=== PATIENT | female | born 1955 | race Caucasian/White ===

== ENCOUNTER 2018-08-03 16:17 | Inpatient (IN) ==
[2018-08-03] MEDS ORDERED: ONDANSETRON 4 MG/2 ML VIAL IV STA (16:36)
[2018-08-03] MEDS ORDERED: SODIUM CHLORIDE 0.9% 500 ML IV STA (16:36)
[2018-08-03] MEDS ORDERED: PANTOPRAZOLE 40 MG VIAL IV STA (16:36)
[2018-08-03 17:15] LABS: Basophils # 0.1 10*3/uL (0.0-0.2); Basophils % 0.5 % (0.0-0.8); Eosinophils # 0.1 10*3/uL (0.0-0.87); Eosinophils % 0.6 % (0.00-10.9); Hematocrit 41.2 VOL% (35.7-47.0); Hemoglobin 12.7 GM/DL (12.0-16.0); Immature Granulocytes % 0.4 %; Immature Granulocytes Absolute 0.04 #; Lymphocytes # 1.9 10*3/uL (1.4-4.0); Lymphocytes % 18.9 % (21.3-54.2); Mean Corpuscular HGB Conc 30.8 GM/DL (32-36); Mean Corpuscular Hemoglobin 26 PG (27-34); Mean Corpuscular Volume 84.4 FL (87-102); Mean Platelet Volume 9.6 FL (9.6-12.0); Monocytes # 0.9 10*3/uL (0.11-0.8); Monocytes % 8.9 % (1.7-12.7); Neutrophils # 7.1 10*3/uL (1.4-7.4); Neutrophils % 70.7 % (38.7-73.9); Platelet Count 297 T/CUMM (130-400); Red Blood Count 4.88 MC/CUMM (3.8-5.5); Red Cell Distribution Width 14.8 % (9.3-17.3); White Blood Count 10.1 T/CUMM (4-12)
[2018-08-03 17:25] LABS: Albumin 3.9 G/DL (3.4-5.0); Bilirubin,Total 0.4 MG/DL (0.2-1.0); Osmolality,Calculated 285.3 MOS/KG (273-304); Potassium 3.9 MMOL/L (3.5-5.1); Total Protein 7.9 G/DL (6.4-8.3)
[2018-08-03 17:46] LABS: Apearance,Urine CLOUDY (Clear); Bilirubin,Urine Negative (Negative); Blood, Urine Small mg/dL (Negative); Glucose,Urine (UA) Negative (Negative); Hyaline Casts,Urine 11 /LPF (0-3); Ketones,Urine 5 mg/dL (Negative); Mucus,Urine Occasional /LPF (Occasional); Nitrite,Urine Positive (Negative); Protein,Urine 30 MG/DL; RBC,Urine 8 /HPF (0-4); Squamous Epithelial Cell,Urine Occasional /HPF (0-10); Urine Color Amber (Yellow); Urine Specific Gravity 1.021 (1.001-1.035); WBC,Urine 53 /HPF (0-6)
[2018-08-03 17:53] LABS: INR 0.9
[2018-08-03] MEDS ORDERED: cefTRIAXone 1,000 MG in SODIUM CHLORIDE 0.9% 100 ML IV STA (18:10)
[2018-08-03] MEDS ORDERED: ACETAMINOPHEN 325 MG TABLET PO PRN (19:25)
[2018-08-03] MEDS ORDERED: DEXTROSE 5% NACL 0.9% 1,000 ML IV SCH (19:30)
[2018-08-03] MEDS ORDERED: ONDANSETRON 4 MG/2 ML VIAL IV PRN (20:00)
[2018-08-03 20:22] LABS: Hematocrit 30.1 VOL% (35.7-47.0)
[2018-08-03 20:41] LABS: Hemoglobin 9.1 GM/DL (12.0-16.0)
[2018-08-03] MEDS ORDERED: PANTOPRAZOLE 40 MG VIAL IV SCH (21:00)
[2018-08-03] MEDS: OLANZapine 5 MG TABLET PO SCH (21:29)
[2018-08-03] MEDS: SODIUM CHLORIDE 0.9% 1,000 ML IV SCH (21:30)
[2018-08-03] MEDS: ZALEPLON 5 MG CAPSULE PO PRN (21:30)
[2018-08-04 01:44] LABS: Basophils % 0.4 % (0.0-0.8); Eosinophils # 0.1 10*3/uL (0.0-0.87); Hemoglobin 11.2 GM/DL (12.0-16.0); Immature Granulocytes % 0.1 %; Immature Granulocytes Absolute 0.01 #; Lymphocytes # 2.6 10*3/uL (1.4-4.0); Lymphocytes % 26.5 % (21.3-54.2); Mean Corpuscular HGB Conc 31.1 GM/DL (32-36); Mean Corpuscular Hemoglobin 26 PG (27-34); Mean Corpuscular Volume 84.3 FL (87-102); Monocytes # 1.2 10*3/uL (0.11-0.8); Monocytes % 12.5 % (1.7-12.7); Neutrophils # 5.9 10*3/uL (1.4-7.4); Neutrophils % 59.5 % (38.7-73.9); Platelet Count 271 T/CUMM (130-400); Red Blood Count 4.27 MC/CUMM (3.8-5.5); Red Cell Distribution Width 14.9 % (9.3-17.3); White Blood Count 9.8 T/CUMM (4-12)
[2018-08-04 02:32] LABS: Risk Ratio 2.58; Thyroid Stimulating Hormone 2.89 uIU/ml (0.358-3.74); VLDL CHOLESTEROL 44.6 MG/DL
[2018-08-04] MEDS: SODIUM CHLORIDE 0.9% 1,000 ML IV SCH ×3 (05:29→21:41)
[2018-08-04 08:21] LABS: Hematocrit 38.6 VOL% (35.7-47.0); Hemoglobin 11.8 GM/DL (12.0-16.0)
[2018-08-04] MEDS ORDERED: PANTOPRAZOLE 40 MG VIAL IV SCH (09:00)
[2018-08-04] MEDS: amLODIPine 10 MG TABLET PO SCH (09:30)
[2018-08-04] MEDS: BISACODYL 5 MG TABLET PO SCH ×3 (09:31→22:47)
[2018-08-04] MEDS: ACETAMINOPHEN 325 MG TABLET PO PRN ×2 (09:32→17:50)
[2018-08-04 13:55] LABS: Hematocrit 36.4 VOL% (35.7-47.0); Hemoglobin 11.1 GM/DL (12.0-16.0)
[2018-08-04] MEDS ORDERED: POLYETHYLENE GLYCOL POWDER 255 GM BOTTLE PO ONE (18:00)
[2018-08-04] MEDS: OLANZapine 5 MG TABLET PO SCH (20:32)
[2018-08-04] MEDS: ATORVASTATIN 20 MG TABLET PO SCH (20:32)
[2018-08-04] MEDS ORDERED: MAGNESIUM CITRATE 300 ML BOTTLE PO ONE (21:00)
[2018-08-04] MEDS ORDERED: HydrOXYzine PAMOATE 50 MG CAPSULE PO SCH (21:00)
[2018-08-05] MEDS: ZALEPLON 5 MG CAPSULE PO PRN (00:12)
[2018-08-05] MEDS ORDERED: PROPOFOL 200 MG/20 ML VIAL IV ONE (09:00)
[2018-08-05] MEDS ORDERED: LIDOCAINE 2% 5 ML VIAL ONE (09:00)
[2018-08-05 09:10] VITALS: BP 118/91
[2018-08-05] MEDS: SODIUM CHLORIDE 0.9% 1,000 ML IV SCH ×2 (10:13→13:01)
[2018-08-05] MEDS: amLODIPine 10 MG TABLET PO SCH (10:15)
[2018-08-05] MEDS: ATORVASTATIN 20 MG TABLET PO SCH (10:15)
[2018-08-05] MEDS ORDERED: FOSFOMYCIN 3 GM PACK PO ONE (12:00)
[2018-08-05] MEDS ORDERED: ACETAMINOPHEN 500 MG TABLET PO SCH (12:00)
[2018-08-05] MEDS: POLYETHYLENE GLYCOL POWDER 17 GM PACK PO SCH ×2 (12:40→13:36)
== END 2018-08-05 13:53 | disposition home or self-care (01) | DRG 254 ==
LOC: EDUNIT# → EDBD → N.ED 16:17 → N.EDINP 19:25 → N.5E 20:16
PROVIDERS: ADMIT Hospitalist; ATTEND Hospitalist
PROC: COLONBL (2018-08-05 07:35)

== ENCOUNTER 2021-04-14 18:10 | Inpatient (IN) ==
[2021-04-14] MEDS ORDERED: SODIUM CHLORIDE 0.9% 1,000 ML IV STA (19:29)
[2021-04-14 20:34] LABS: Basophils # 0.1 10*3/uL (0.0-0.2); Basophils % 0.3 % (0.0-0.8); Hematocrit 42.3 VOL% (35.7-47.0); Hemoglobin 13.4 GM/DL (12.0-16.0); Immature Granulocytes % 0.4 %; Immature Granulocytes Absolute 0.07 #; Lymphocytes # 2.2 10*3/uL (1.4-4.0); Lymphocytes % 12.3 % (21.3-54.2); Mean Corpuscular HGB Conc 31.7 GM/DL (32-36); Mean Corpuscular Volume 84.1 FL (87-102); Mean Platelet Volume 10.5 FL (9.6-12.0); Monocytes % 9.5 % (1.7-12.7); Neutrophils % 77.5 % (38.7-73.9); Platelet Count 291 T/CUMM (130-400); Red Blood Count 5.03 MC/CUMM (3.8-5.5); White Blood Count 17.7 T/CUMM (4-12)
[2021-04-14 20:40] LABS: Alanine Aminotransferase 436 U/L (13-56); Albumin 3.2 G/DL (3.4-5.0); Alkaline Phosphatase 116 U/L (45-117); Aspartate Amino Transferase 1272 U/L (0-37); Blood Urea Nitrogen 58 MG/DL (7-18); Calcium 9.2 MG/DL (8.5-10.1); Carbon Dioxide 16 MMOL/L (21-32); Estimated Glom Filtration Rate 10 ML/MIN; Glucose 117 MG/DL (74-106); Osmolality,Calculated 280.5 MOS/KG (273-304); Potassium 5.2 MMOL/L (3.5-5.1); Sodium 132 MMOL/L (136-145); Total Protein 7.7 G/DL (6.4-8.2)
[2021-04-14] MEDS ORDERED: ENOXAPARIN 30 MG/0.3 ML SYRINGE SUBCUT STA (20:59)
[2021-04-14] MEDS ORDERED: ENOXAPARIN 100 MG/ML SYRINGE SUBCUT STA (21:17)
[2021-04-14 21:27] LABS: Band Neutrophils 1 % (0-10); Eosinophils 1 % (0-10); Lymphocytes 14 % (20-55); Metamyelocytes 1 %; Platelet Estimate Adequate; Segmented Neutrophils 75 % (50-85); Total Cells Counted 100
[2021-04-14 21:53] LABS: Bacteria,Urine Many /HPF (Few); Blood, Urine Moderate mg/dL (Negative); Glucose,Urine (UA) Negative (Negative); Ketones,Urine Negative (Negative); Mucus,Urine Many /LPF (Occasional); Nitrite,Urine Negative (Negative); Protein,Urine 100 MG/DL; RBC,Urine 57 /HPF (0-4); Squamous Epithelial Cell,Urine Occasional /HPF (0-10); Urine Appearance CLOUDY (Clear); Urine Color Amber (Yellow); Urine Specific Gravity 1.012 (1.001-1.035)
[2021-04-14 21:54] LABS: Bilirubin,Urine Small mg/dL (Negative)
[2021-04-14 21:58] LABS: Barbiturates Screen,Urine Negative (Negative); Benzodiazepines Screen,Urine Negative (Negative); Cannabinoid Screen,Urine Negative (Negative); Opiate Screen,Urine Negative (Negative); Phencyclidine Screen,Urine Negative (Negative)
[2021-04-14] MEDS ORDERED: PIPERACILLIN/TAZOBACTAM 3,375 MG in SODIUM CHLORIDE 0.9% 100 ML IV STA (22:07)
[2021-04-14] MEDS ORDERED: DEXTROSE 50% 25 GM/50 ML SYRINGE IV PRN (22:27)
[2021-04-14] MEDS ORDERED: SIMETHICONE CHEW 125 MG TABLET PO PRN (22:27)
[2021-04-14] MEDS ORDERED: ACETAMINOPHEN 325 MG TABLET PO PRN (22:27)
[2021-04-14] MEDS ORDERED: GLUCAGON 1 MG VIAL IM PRN (22:27)
[2021-04-15 01:04] LABS: INR 1.1; PT Patient Result 12.4 SECS (10.5-12.0); Partial Thromboplastin Time 41.4 SECS (23.8-32.1)
[2021-04-15] MEDS ORDERED: SODIUM CHLORIDE 0.9% 1,000 ML IV SCH (01:30)
[2021-04-15 03:31] LABS: Basophils % 0.2 % (0.0-0.8); Hematocrit 40.5 VOL% (35.7-47.0); Hemoglobin 12.8 GM/DL (12.0-16.0); Immature Granulocytes % 0.4 %; Immature Granulocytes Absolute 0.07 #; Lymphocytes # 1.7 10*3/uL (1.4-4.0); Lymphocytes % 9.5 % (21.3-54.2); Mean Corpuscular HGB Conc 31.6 GM/DL (32-36); Mean Corpuscular Volume 84.2 FL (87-102); Monocytes % 10.9 % (1.7-12.7); Platelet Count 269 T/CUMM (130-400); Red Blood Count 4.81 MC/CUMM (3.8-5.5); White Blood Count 17.8 T/CUMM (4-12)
[2021-04-15 03:51] LABS: Band Neutrophils 3 % (0-10); Lymphocytes 10 % (20-55); Platelet Estimate Adequate; Segmented Neutrophils 78 % (50-85); Total Cells Counted 100
[2021-04-15 03:52] LABS: Albumin 2.9 G/DL (3.4-5.0); Bilirubin,Direct 0.7 MG/DL (0.0-0.20); Bilirubin,Indirect 1.5 MG/DL (0.0-1.0); Bilirubin,Total 2.2 MG/DL (0.20-1.00); Calcium 8.3 MG/DL (8.5-10.1); Osmolality,Calculated 290.1 MOS/KG (273-304); Potassium 5.1 MMOL/L (3.5-5.1); Risk Ratio 2.17; Thyroid Stimulating Hormone 3.07 uIU/ml (0.358-3.74); Total Protein 7.4 G/DL (6.4-8.2); VLDL Cholesterol 33.2 MG/DL
[2021-04-15 05:59] LABS: ABG Base Excess -9.8 MMOL/L (-2.5-2.5); ABG HCO3 14.4 MMOL/L (20-26); ABG Oxygen Saturation 95.6 % (95-100); ABG PCO2 27.3 MM HG (35-48); ABG PO2 81.1 MM HG (80-95); ABG TCO2 15.2 MMOL/L (23-27)
[2021-04-15] MEDS ORDERED: SODIUM BICARB INJ 50 MEQ in SODIUM CHLORIDE 0.45% 1,000 ML IV SCH (06:00)
[2021-04-15] MEDS: SODIUM CHLORIDE 0.9% 1,000 ML IV SCH ×2 (06:14→14:28)
[2021-04-15] MEDS: MEROPENEM 500 MG in SODIUM CHLORIDE 0.9% 100 ML IV SCH ×2 (06:27→16:53)
[2021-04-15 07:53] LABS: Hepatitis B Core IgM Quant 0.28 Index; Hepatitis B Surface Ag Quant < 0.10 Index; Hepatitis B Surface Ag Result Non-Reactive (NonReactive); Hepatitis C Virus Ab Quant 10.26 Index
[2021-04-15] MEDS: SODIUM BICARB INJ 150 MEQ in STERILE WATER INJ 1,000 ML IV SCH ×2 (09:13→22:39)
[2021-04-15] MEDS: DOCUSATE SODIUM 100 MG CAPSULE PO SCH ×2 (09:15→22:38)
[2021-04-15] MEDS: PANTOPRAZOLE 40 MG TABLET PO SCH (09:15)
[2021-04-15] MEDS ORDERED: INFLUENZA VIRUS VACCINE 0.5 ML SYRINGE IM ONE (16:08)
[2021-04-15 22:17] LABS: CKMB % 0.3 %
[2021-04-15 22:18] LABS: High Sensitive Troponin I* 368.3 ng/L (0-54)
[2021-04-15] MEDS: ZALEPLON 5 MG CAPSULE PO PRN (22:38)
[2021-04-15] MEDS: HEPARIN 5,000 UNIT/1 ML VIAL SUBCUT SCH (22:39)
[2021-04-15] MEDS: POLYETHYLENE GLYCOL POWDER 17 GM PACK PO SCH (22:46)
[2021-04-16] MEDS: MEROPENEM 500 MG in SODIUM CHLORIDE 0.9% 100 ML IV SCH (05:17)
[2021-04-16 05:50] LABS: Basophils % 0.2 % (0.0-0.8); Eosinophils % 0.1 % (0.00-10.9); Hematocrit 34.4 VOL% (35.7-47.0); Hemoglobin 11.2 GM/DL (12.0-16.0); Immature Granulocytes % 0.1 %; Immature Granulocytes Absolute 0.02 #; Lymphocytes # 0.9 10*3/uL (1.4-4.0); Lymphocytes % 6.5 % (21.3-54.2); Mean Corpuscular HGB Conc 32.6 GM/DL (32-36); Mean Corpuscular Volume 81.9 FL (87-102); Mean Platelet Volume 10.2 FL (9.6-12.0); Monocytes % 8.5 % (1.7-12.7); Neutrophils % 84.6 % (38.7-73.9); Platelet Count 259 T/CUMM (130-400); Red Cell Distribution Width 15.9 % (9.3-17.3); White Blood Count 13.6 T/CUMM (4-12)
[2021-04-16 06:15] LABS: Hypochromasia 1+; Lymphocytes 4 % (20-55); Microcytosis 1+; Platelet Estimate Adequate; Segmented Neutrophils 90 % (50-85); Total Cells Counted 100
[2021-04-16 06:26] LABS: Albumin 2.3 G/DL (3.4-5.0); Bilirubin,Total 2.1 MG/DL (0.20-1.00); Calcium 8.5 MG/DL (8.5-10.1); Osmolality,Calculated 287.9 MOS/KG (273-304); Potassium 5.3 MMOL/L (3.5-5.1); Total Protein 6.8 G/DL (6.4-8.2)
[2021-04-16 06:26] LABS: Albumin 2.3 G/DL (3.4-5.0); Bilirubin,Direct 0.53 MG/DL (0.0-0.20); Bilirubin,Indirect 1.1 MG/DL (0.0-1.0); Bilirubin,Total 1.6 MG/DL (0.20-1.00); Total Protein 6.9 G/DL (6.4-8.2)
[2021-04-16] MEDS: HEPARIN 5,000 UNIT/1 ML VIAL SUBCUT SCH ×2 (10:03→20:47)
[2021-04-16] MEDS: POLYETHYLENE GLYCOL POWDER 17 GM PACK PO SCH ×2 (10:04→21:47)
[2021-04-16 10:05] LABS: High Sensitive Troponin I* 177.2 ng/L (0-54)
[2021-04-16] MEDS: DOCUSATE SODIUM 100 MG CAPSULE PO SCH ×2 (10:07→21:47)
[2021-04-16] MEDS: PANTOPRAZOLE 40 MG TABLET PO SCH (10:07)
[2021-04-16] MEDS: LINACLOTIDE 145 MCG CAPSULE PO SCH (10:07)
[2021-04-16 11:01] LABS: CKMB % 0.2 %
[2021-04-16] MEDS: DESITIN 4OZ/NYSTATIN 15 GRAM MIXTURE PASTE TOP SCH ×2 (13:20→21:47)
[2021-04-16] MEDS: cefTRIAXone 1,000 MG in SODIUM CHLORIDE 0.9% 100 ML IV SCH (17:20)
[2021-04-16] MEDS: ONDANSETRON 4 MG/2 ML VIAL IV PRN (20:45)
[2021-04-16] MEDS: ZALEPLON 5 MG CAPSULE PO PRN (21:47)
[2021-04-17 06:57] LABS: Basophils % 0.1 % (0.0-0.8); Eosinophils # 0.1 10*3/uL (0.0-0.87); Eosinophils % 0.3 % (0.00-10.9); Hematocrit 32.2 VOL% (35.7-47.0); Hemoglobin 10.6 GM/DL (12.0-16.0); Immature Granulocytes % 0.4 %; Immature Granulocytes Absolute 0.06 #; Lymphocytes # 1.1 10*3/uL (1.4-4.0); Lymphocytes % 6.6 % (21.3-54.2); Mean Corpuscular HGB Conc 32.9 GM/DL (32-36); Mean Corpuscular Volume 79.7 FL (87-102); Monocytes % 8.5 % (1.7-12.7); Neutrophils % 84.1 % (38.7-73.9); Platelet Count 256 T/CUMM (130-400); Red Blood Count 4.04 MC/CUMM (3.8-5.5); Red Cell Distribution Width 15.9 % (9.3-17.3); White Blood Count 16.6 T/CUMM (4-12)
[2021-04-17 07:15] LABS: Hypochromasia Slight; Lymphocytes 8 % (20-55); Microcytosis Slight; Platelet Estimate Adequate; Segmented Neutrophils 88 % (50-85); Total Cells Counted 100
[2021-04-17] MEDS: DOCUSATE SODIUM 100 MG CAPSULE PO SCH ×2 (08:38→20:35)
[2021-04-17] MEDS: LINACLOTIDE 145 MCG CAPSULE PO SCH (08:38)
[2021-04-17] MEDS: PANTOPRAZOLE 40 MG TABLET PO SCH (08:38)
[2021-04-17] MEDS: POLYETHYLENE GLYCOL POWDER 17 GM PACK PO SCH ×2 (08:38→20:35)
[2021-04-17] MEDS: HEPARIN 5,000 UNIT/1 ML VIAL SUBCUT SCH (08:41)
[2021-04-17] MEDS: DESITIN 4OZ/NYSTATIN 15 GRAM MIXTURE PASTE TOP SCH ×2 (09:02→20:35)
[2021-04-17 09:36] LABS: Albumin 2.3 G/DL (3.4-5.0); Bilirubin,Total 1.5 MG/DL (0.20-1.00); Calcium 8.2 MG/DL (8.5-10.1); Osmolality,Calculated 293.1 MOS/KG (273-304); Potassium 5.7 MMOL/L (3.5-5.1); Total Protein 7.2 G/DL (6.4-8.2)
[2021-04-17] MEDS: cefTRIAXone 1,000 MG in SODIUM CHLORIDE 0.9% 100 ML IV SCH (17:43)
[2021-04-17] MEDS: ZALEPLON 5 MG CAPSULE PO PRN (22:03)
[2021-04-18 07:29] LABS: Basophils % 0.1 % (0.0-0.8); Eosinophils # 0.2 10*3/uL (0.0-0.87); Hematocrit 32.1 VOL% (35.7-47.0); Hemoglobin 10.5 GM/DL (12.0-16.0); Immature Granulocytes % 0.9 %; Immature Granulocytes Absolute 0.13 #; Lymphocytes # 1.4 10*3/uL (1.4-4.0); Lymphocytes % 9.7 % (21.3-54.2); Mean Corpuscular HGB Conc 32.7 GM/DL (32-36); Mean Corpuscular Volume 80.3 FL (87-102); Mean Platelet Volume 9.7 FL (9.6-12.0); Monocytes % 10.8 % (1.7-12.7); Neutrophils % 77.5 % (38.7-73.9); Platelet Count 262 T/CUMM (130-400); Red Cell Distribution Width 15.9 % (9.3-17.3); White Blood Count 14.7 T/CUMM (4-12)
[2021-04-18] MEDS: LINACLOTIDE 145 MCG CAPSULE PO SCH (07:32)
[2021-04-18 07:49] LABS: Eosinophils 3 % (0-10); Hypochromasia 1+; Lymphocytes 15 % (20-55); Segmented Neutrophils 78 % (50-85); Total Cells Counted 100
[2021-04-18 07:50] LABS: Microcytosis 1+; Platelet Estimate Normal; Target Cells Slight
[2021-04-18] MEDS: DESITIN 4OZ/NYSTATIN 15 GRAM MIXTURE PASTE TOP SCH ×2 (07:50→20:15)
[2021-04-18] MEDS: POLYETHYLENE GLYCOL POWDER 17 GM PACK PO SCH ×2 (08:30→20:15)
[2021-04-18] MEDS: DOCUSATE SODIUM 100 MG CAPSULE PO SCH ×2 (08:30→20:15)
[2021-04-18] MEDS ORDERED: SODIUM CHLORIDE 0.9% 250 ML IV SCH (08:30)
[2021-04-18 08:31] LABS: Albumin 2.3 G/DL (3.4-5.0); Bilirubin,Direct 0.61 MG/DL (0.0-0.20); Bilirubin,Indirect 0.6 MG/DL (0.0-1.0); Bilirubin,Total 1.2 MG/DL (0.20-1.00)
[2021-04-18] MEDS: PANTOPRAZOLE 40 MG TABLET PO SCH (08:31)
[2021-04-18] MEDS ORDERED: HEPARIN 5,000 UNIT/1 ML VIAL ONE (09:03)
[2021-04-18] MEDS ORDERED: BUPIVACAINE MPF 0.25% 30 ML VIAL ONE (09:03)
[2021-04-18] MEDS ORDERED: LIDOCAINE 1%/EPI INJ 20 ML VIAL ONE (09:03)
[2021-04-18] MEDS ORDERED: KETAMINE 500 MG/10 ML VIAL ONE (09:08)
[2021-04-18] MEDS ORDERED: propofoL 200 MG/20 ML VIAL IV ONE (09:10)
[2021-04-18] MEDS ORDERED: SODIUM CHLORIDE 0.9% 250 ML IV ONE (09:32)
[2021-04-18] MEDS ORDERED: ceFAZolin 1,000 MG VIAL ONE (09:32)
[2021-04-18 10:21] LABS: Albumin 2.2 G/DL (3.4-5.0); Bilirubin,Total 1.2 MG/DL (0.20-1.00); Calcium 8.1 MG/DL (8.5-10.1); Osmolality,Calculated 302.9 MOS/KG (273-304); Potassium 5.9 MMOL/L (3.5-5.1); Total Protein 7.1 G/DL (6.4-8.2)
[2021-04-18] MEDS ORDERED: HEPARIN 10,000 UNIT/10 ML VIAL IV ONE (11:45)
[2021-04-18 12:55] LABS: Hepatitis B Core IgM Quant 0.29 Index; Hepatitis B Surface Ag Quant < 0.10 Index; Hepatitis B Surface Ag Result Non-Reactive (NonReactive)
[2021-04-18] MEDS: cefTRIAXone 1,000 MG in SODIUM CHLORIDE 0.9% 100 ML IV SCH (16:43)
[2021-04-18] MEDS: ONDANSETRON 4 MG/2 ML VIAL IV PRN (22:00)
[2021-04-18] MEDS: ZALEPLON 5 MG CAPSULE PO PRN (22:00)
[2021-04-19 07:16] LABS: Basophils % 0.1 % (0.0-0.8); Eosinophils # 0.1 10*3/uL (0.0-0.87); Eosinophils % 0.8 % (0.00-10.9); Hematocrit 35.5 VOL% (35.7-47.0); Hemoglobin 11.2 GM/DL (12.0-16.0); Immature Granulocytes % 2.7 %; Immature Granulocytes Absolute 0.29 #; Lymphocytes # 1.1 10*3/uL (1.4-4.0); Lymphocytes % 9.9 % (21.3-54.2); Mean Corpuscular HGB Conc 31.5 GM/DL (32-36); Mean Platelet Volume 10.1 FL (9.6-12.0); Monocytes % 15.9 % (1.7-12.7); Neutrophils % 70.6 % (38.7-73.9); Platelet Count 287 T/CUMM (130-400); Red Blood Count 4.33 MC/CUMM (3.8-5.5); White Blood Count 10.9 T/CUMM (4-12)
[2021-04-19 08:03] LABS: Albumin 2.2 G/DL (3.4-5.0); Bilirubin,Total 1.3 MG/DL (0.20-1.00); Calcium 8.4 MG/DL (8.5-10.1); Osmolality,Calculated 296.1 MOS/KG (273-304); Potassium 4.9 MMOL/L (3.5-5.1); Total Protein 7.3 G/DL (6.4-8.2)
[2021-04-19 08:25] LABS: Anisocytosis 1+; Band Neutrophils 5 % (0-10); Lymphocytes 12 % (20-55); Macrocytosis Slight; Platelet Estimate Normal; Segmented Neutrophils 63 % (50-85); Total Cells Counted 100
[2021-04-19] MEDS: PANTOPRAZOLE 40 MG TABLET PO SCH (08:31)
[2021-04-19] MEDS: DESITIN 4OZ/NYSTATIN 15 GRAM MIXTURE PASTE TOP SCH ×2 (08:34→21:39)
[2021-04-19] MEDS: DOCUSATE SODIUM 100 MG CAPSULE PO SCH ×2 (08:44→21:40)
[2021-04-19] MEDS ORDERED: HEPARIN 10,000 UNIT/10 ML VIAL IV PRN (10:45)
[2021-04-19] MEDS: LINACLOTIDE 145 MCG CAPSULE PO SCH (13:23)
[2021-04-19] MEDS: ZALEPLON 5 MG CAPSULE PO PRN (21:39)
[2021-04-20] MEDS: ZALEPLON 5 MG CAPSULE PO PRN ×2 (00:43→22:42)
[2021-04-20] MEDS: cefTRIAXone 1,000 MG in SODIUM CHLORIDE 0.9% 100 ML IV SCH ×2 (06:10→16:00)
[2021-04-20 06:55] LABS: Albumin 2.5 G/DL (3.4-5.0); Bilirubin,Total 1.1 MG/DL (0.20-1.00); Calcium 8.5 MG/DL (8.5-10.1); Osmolality,Calculated 288.4 MOS/KG (273-304); Potassium 4.4 MMOL/L (3.5-5.1); Total Protein 7.9 G/DL (6.4-8.2)
[2021-04-20] MEDS: DOCUSATE SODIUM 100 MG CAPSULE PO SCH (11:26)
[2021-04-20] MEDS: PANTOPRAZOLE 40 MG TABLET PO SCH (11:26)
[2021-04-20] MEDS: DESITIN 4OZ/NYSTATIN 15 GRAM MIXTURE PASTE TOP SCH ×2 (11:27→22:43)
[2021-04-20] MEDS: ONDANSETRON 4 MG/2 ML VIAL IV PRN (22:51)
[2021-04-21] MEDS: ZALEPLON 5 MG CAPSULE PO PRN ×2 (00:33→21:36)
[2021-04-21] MEDS: DOCUSATE SODIUM 100 MG CAPSULE PO SCH ×3 (01:16→21:36)
[2021-04-21] MEDS: ONDANSETRON 4 MG/2 ML VIAL IV PRN ×2 (02:46→22:36)
[2021-04-21 07:04] LABS: Basophils # 0.1 10*3/uL (0.0-0.2); Basophils % 0.3 % (0.0-0.8); Eosinophils # 0.2 10*3/uL (0.0-0.87); Eosinophils % 1.4 % (0.00-10.9); Hematocrit 35.6 VOL% (35.7-47.0); Hemoglobin 11.2 GM/DL (12.0-16.0); Immature Granulocytes % 4.5 %; Immature Granulocytes Absolute 0.69 #; Lymphocytes % 13.2 % (21.3-54.2); Mean Corpuscular HGB Conc 31.5 GM/DL (32-36); Mean Corpuscular Volume 83.2 FL (87-102); Mean Platelet Volume 10.1 FL (9.6-12.0); Monocytes % 11.7 % (1.7-12.7); Neutrophils % 68.9 % (38.7-73.9); Platelet Count 401 T/CUMM (130-400); Red Blood Count 4.28 MC/CUMM (3.8-5.5); Red Cell Distribution Width 15.7 % (9.3-17.3); White Blood Count 15.5 T/CUMM (4-12)
[2021-04-21 07:25] LABS: Albumin 2.3 G/DL (3.4-5.0); Bilirubin,Total 1.1 MG/DL (0.20-1.00); Calcium 8.4 MG/DL (8.5-10.1); Osmolality,Calculated 283.4 MOS/KG (273-304); Total Protein 7.4 G/DL (6.4-8.2)
[2021-04-21 07:30] LABS: Eosinophils 3 % (0-10); Hypochromasia 1+; Lymphocytes 17 % (20-55); Microcytosis 1+; Platelet Estimate Adequate; Segmented Neutrophils 70 % (50-85); Total Cells Counted 100
[2021-04-21 08:13] LABS: Free T4 (Free Thyroxine) 1.33 NG/DL (0.76-1.46)
[2021-04-21] MEDS: DESITIN 4OZ/NYSTATIN 15 GRAM MIXTURE PASTE TOP SCH ×2 (09:22→21:36)
[2021-04-21] MEDS: PANTOPRAZOLE 40 MG TABLET PO SCH (09:22)
[2021-04-21] MEDS: cefTRIAXone 1,000 MG in SODIUM CHLORIDE 0.9% 100 ML IV SCH (17:05)
[2021-04-21] MEDS: METOPROLOL TARTRATE 25 MG TABLET PO SCH (21:36)
[2021-04-22] MEDS: ONDANSETRON 4 MG/2 ML VIAL IV PRN ×2 (05:50→17:26)
[2021-04-22 06:12] LABS: Basophils # 0.1 10*3/uL (0.0-0.2); Basophils % 0.3 % (0.0-0.8); Eosinophils # 0.4 10*3/uL (0.0-0.87); Eosinophils % 2.5 % (0.00-10.9); Hematocrit 33.6 VOL% (35.7-47.0); Hemoglobin 10.6 GM/DL (12.0-16.0); Immature Granulocytes % 4.5 %; Immature Granulocytes Absolute 0.65 #; Lymphocytes # 1.8 10*3/uL (1.4-4.0); Lymphocytes % 12.7 % (21.3-54.2); Mean Corpuscular HGB Conc 31.5 GM/DL (32-36); Mean Corpuscular Volume 83.4 FL (87-102); Monocytes % 9.6 % (1.7-12.7); Neutrophils % 70.4 % (38.7-73.9); Platelet Count 409 T/CUMM (130-400); Red Blood Count 4.03 MC/CUMM (3.8-5.5); Red Cell Distribution Width 15.5 % (9.3-17.3); White Blood Count 14.5 T/CUMM (4-12)
[2021-04-22 06:43] LABS: Albumin 2.2 G/DL (3.4-5.0); Bilirubin,Total 0.7 MG/DL (0.20-1.00); Calcium 8.1 MG/DL (8.5-10.1); Osmolality,Calculated 287.7 MOS/KG (273-304); Potassium 4.2 MMOL/L (3.5-5.1); Total Protein 6.8 G/DL (6.4-8.2)
[2021-04-22 06:44] LABS: Band Neutrophils 1 % (0-10); Eosinophils 3 % (0-10); Hypochromasia 1+; Lymphocytes 14 % (20-55); Microcytosis 1+; Platelet Estimate Adequate; Segmented Neutrophils 74 % (50-85); Total Cells Counted 100
[2021-04-22] MEDS: PANTOPRAZOLE 40 MG TABLET PO SCH (08:55)
[2021-04-22] MEDS: DOCUSATE SODIUM 100 MG CAPSULE PO SCH ×2 (08:55→20:45)
[2021-04-22] MEDS: DESITIN 4OZ/NYSTATIN 15 GRAM MIXTURE PASTE TOP SCH ×2 (08:55→20:46)
[2021-04-22] MEDS: METOPROLOL TARTRATE 25 MG TABLET PO SCH ×2 (13:04→20:45)
[2021-04-22] MEDS: cefTRIAXone 1,000 MG in SODIUM CHLORIDE 0.9% 100 ML IV SCH (16:05)
[2021-04-22] MEDS: ZALEPLON 5 MG CAPSULE PO PRN (22:31)
[2021-04-23 05:49] LABS: Basophils # 0.1 10*3/uL (0.0-0.2); Basophils % 0.3 % (0.0-0.8); Eosinophils # 0.3 10*3/uL (0.0-0.87); Hemoglobin 10.4 GM/DL (12.0-16.0); Immature Granulocytes % 2.7 %; Lymphocytes # 1.9 10*3/uL (1.4-4.0); Lymphocytes % 12.6 % (21.3-54.2); Mean Corpuscular HGB Conc 31.5 GM/DL (32-36); Mean Corpuscular Volume 83.8 FL (87-102); Mean Platelet Volume 9.9 FL (9.6-12.0); Monocytes % 9.1 % (1.7-12.7); Neutrophils % 73.3 % (38.7-73.9); Platelet Count 413 T/CUMM (130-400); Red Blood Count 3.94 MC/CUMM (3.8-5.5); Red Cell Distribution Width 15.6 % (9.3-17.3)
[2021-04-23 06:18] LABS: Albumin 2.2 G/DL (3.4-5.0); Bilirubin,Total 1.8 MG/DL (0.20-1.00); Calcium 8.3 MG/DL (8.5-10.1); Potassium 4.5 MMOL/L (3.5-5.1)
[2021-04-23] MEDS: DOCUSATE SODIUM 100 MG CAPSULE PO SCH (08:36)
[2021-04-23] MEDS: PANTOPRAZOLE 40 MG TABLET PO SCH (08:36)
[2021-04-23] MEDS: METOPROLOL TARTRATE 25 MG TABLET PO SCH (08:36)
[2021-04-23] MEDS: DESITIN 4OZ/NYSTATIN 15 GRAM MIXTURE PASTE TOP SCH (08:40)
[2021-04-23 12:55] VITALS: BP 142/62
== END 2021-04-23 13:50 | DRG 674 ==
LOC: EDBD → EDUNIT# → N.ED 18:10 → SUATTDRO 23:18 → N.EDINP 23:18 → N.TELES 04-15 15:20
PROVIDERS: ADMIT Internal Medicine; ATTEND Internal Medicine